=== PATIENT | male | born 1990 | race Caucasian/White ===

== ENCOUNTER 2019-02-18 08:47 | Emergency (ER) | payer OTHER, SELFPAY ==
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
[2019-02-18 09:04] VITALS: BP 136/70; PULSE 67; RESP 16; TEMP 37.1; O2SAT 98; BMI 26.9
[2019-02-18 09:40] LABS: Alanine Aminotransferase 27 IU/L (21-72)
[2019-02-18 10:36] LABS: HIV 1 & 2 Ab/Ag 4th Gen Combo NEGATIVE (NEGATIVE); Hep C Virus Ab w/Reflex Quant NEGATIVE s/c (NEGATIVE)
[2019-02-20 15:02] LABS: Hepatitis B Surf Ab Qualitativ Reactive (Nonreactive)
== END 2019-02-18 09:23 | disposition home or self-care (01) ==
PROVIDERS: Emergency Provider Emergency Medicine
DX: Z77.21 Contact with and (suspected) exposure to potentially hazardous body fluids (principal); Y99.0 Civilian activity done for income or pay
CPT/HCPCS: 36415; 84460; 86706; 86803; 87389; 99282

== ENCOUNTER 2019-06-17 04:04 | Emergency (ER) | payer OTHER, SELFPAY ==
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
[2019-06-17 04:15] VITALS: BP 165/90; PULSE 60; RESP 16; TEMP 36.1; O2SAT 95
[2019-06-17 05:01] LABS: Alanine Aminotransferase 21 IU/L (<50)
[2019-06-17 05:51] LABS: HIV 1 & 2 Ab/Ag 4th Gen Combo NEGATIVE (NEGATIVE); Hep C Virus Ab w/Reflex Quant NEGATIVE s/c (NEGATIVE)
[2019-06-17] MEDS: DOLUTEGRAVIR 1 PREPACK MISC (05:57)
[2019-06-17] MEDS: EMTRICITABIN/TENOFOVIR PREPACK 1 PREPACK MISC (05:57)
[2019-06-17 06:20] VITALS: BP 139/88; PULSE 67; RESP 16; O2SAT 100
[2019-06-19 15:04] LABS: Hepatitis B Surf Ab Qualitativ Reactive (Nonreactive)
== END 2019-06-17 06:34 | disposition home or self-care (01) ==
PROVIDERS: Emergency Provider Emergency Medicine
DX: Z77.21 Contact with and (suspected) exposure to potentially hazardous body fluids (principal)
CPT/HCPCS: 36415; 84460; 86706; 86803; 87389; 90746; 99282; 99283; A9270; J1571